=== PATIENT | male | born 1985 | race Caucasian/White ===

== ENCOUNTER → 2023-04-21 23:24 | Outpatient (CLI) | payer MEDICAID, SELFPAY ==
[2023-04-21 18:50] LABS: Basophils # 0.1 K/mm3 (0-0.2); Basophils % 1.1 % (0.1-2.0); Eosinophils # 0.4 K/mm3 (0.0-0.4); Eosinophils % 6.2 % (0.1-12.0); Hematocrit 46.3 % (42.0-52.0); Hemoglobin 14.8 g/dL (14.1-18.0); Lymphocytes # 2.2 K/mm3 (0.7-4.5); Lymphocytes % 33.9 % (10-50); Mean Corpuscular Hemoglobin 29.4 pg (27.0-31.2); Mean Corpuscular Volume 91.9 fl (80-94); Mean Platelet Volume 9.1 fl (7.4-10.4); Monocytes # 0.4 K/mm3 (0.1-1.0); Neutrophils # 3.5 K/mm3 (1.8-7.8); Neutrophils % 52.9 % (37.0-80.0); Platelet Count 249 K/mm3 (142-424); Red Blood Count 5.04 M/mm3 (4.60-6.20); Red Cell Distribution Width 14.2 % (11.5-17.5); White Blood Count 6.6 K/mm3 (4.8-10.8)
[2023-04-21 19:07] LABS: Alanine Aminotransferase 16 U/L (12-78); Albumin Level 4.3 g/dl (3.5-5.0); Albumin/Globulin Ratio 1.7 (1.1-1.8); Alkaline Phosphatase 65 U/L (38-126); Anion Gap 13.8 mEq/L (5-15); Aspartate Amino Transferase 30 U/L (17-59); Bilirubin,Total 0.2 mg/dl (0.2-1.3); Blood Urea Nitrogen 19 mg/dl (9-20); Calcium 9.1 mg/dl (8.4-10.2); Carbon Dioxide 30 mmol/L (22.0-30.0); Chloride 101 mmol/L (98-107); Chol/HDL Ratio 4.1 (1-3.5); Cholesterol 202 mg/dl (140-200); Estimated Glomerular Filt Rate 94 ml/min (>60); GFR (African American) 114 ML/MIN (>60); Globulin 2.5 g/dL (1.3-3.2); Glucose 94 mg/dl (74-100); HDL Cholesterol 49 mg/dl (40-60); Potassium 3.8 mmoL/L (3.5-5.1); Sodium 141 mmol/L (136-145); Total Protein,Serum 6.8 g/dl (6.3-8.2); Triglycerides 91 mg/dl (30-150); VLDL Cholesterol 18 mg/dL (0-40)
[2023-04-21 19:18] LABS: Direct LDL Cholesterol 119.23 mg/dL (100-129)
[2023-04-21 19:23] LABS: Free T4 (Free Thyroxine) 1.63 ng/dl (0.78-2.19)
[2023-04-21 19:26] LABS: 25-OH Vitamin D, Total 18.4 ng/mL (30-100)
[2023-04-21 19:39] LABS: Thyroid Stimulating Hormone 2.45 uIU/mL (0.465-4.68)
== END ==
PROVIDERS: PCP Emergency Medicine; Visit Provider Emergency Medicine
DX: E78.5 Hyperlipidemia, unspecified (principal); E55.9 Vitamin D deficiency, unspecified; Z79.899 Other long term (current) drug therapy
CPT/HCPCS: 80053; 80061; 82306; 84439; 84443; 85025

== ENCOUNTER → 2023-06-16 13:06 | Outpatient (CLI) | payer MEDICAID, SELFPAY ==
--- NOTE | 2023-06-16 13:12 | CA_ITS ---
APPROVED REPORT EXAM: Comprehensive 2D, Doppler, and color-flow Echocardiogram [employer]: Elle Delgado RT(R) Ht: 5 ft 6 in Wt: 119lbs BSA: 1.60 BP: 138/82 mmHg Indications: murmur, smoker, HTN, hyperlipidemia 2D Dimensions LVOT 1.77 cm (M/F) 1.5-2.5 M-Mode Dimensions RVDd 2.09 cm (0.9-2.6) LA Diam 2.39 cm (1.9-4.0) LVDd 4.13 cm (3.5-5.7) Ao Diam 2.76 cm (2.0-3.7) LVDs 2.79 cm (3.5-5.7) IVSd 0.64 cm (0.6-1.1) PWd 0.67 cm (0.6-1.1) EF (Teich) 61.20% FS 32.40% EDV (Teich) 75.50 mL TAPSE 2.55 (<1.7) ESV (Teich) 29.30 mL LV Diastology E Decel Time 170.00 (160-240 msec) E/A Ratio 1.9 MED E' 9.80 (< 7 cm/sec) E'/MED E' Ratio 8.71 (>14) LAT E' 13.20 (<10 cm/sec) E/LAT E' Ratio 6.47 (>14) Mitral Valve MV E Max Tay. 85.00 (40-130 cm/s) MV A Velocity 45.00 (40-130 cm/s) E/A Ratio 1.89 MV Decel. Time 170.00 (160-240 ms) MV PHT 50.00 ms Left Ventricle The left ventricle is normal size. The left ventricular systolic function is normal. The left ventricular ejection fraction is within the normal range. There is normal left ventricular wall thickness. There is normal LV segmental wall motion. The left ventricular diastolic function is normal. LVEF is 65%. Right Ventricle The right ventricle is normal size. The right ventricular systolic function is normal. Atria The left atrium size is normal. The right atrium size is normal. There is no Doppler evidence of interatrial shunt. Aortic Valve The aortic valve is trileaflet. The aortic valve opens well. There is no aortic valvular stenosis. No aortic regurgitation is present. Mitral Valve The mitral valve is normal in structure. No evidence of mitral valve stenosis. There is no mitral valve regurgitation noted. Tricuspid Valve Tricuspid valve leaflets are thin and pliable. Trace tricuspid regurgitation. There is insufficient TR jet to estimate RVSP. Pulmonic Valve The pulmonary valve is normal in structure. Mild pulmonic regurgitation. Great Vessels The aortic root is normal in size. The ascending aorta is normal in size. IVC is normal in size and collapses >50% with inspiration. Pericardium There is no pericardial effusion. Other Information Study Quality: Fair Conclusion Normal biventricular systolic function. No significant valvular disease. Electronically signed by : Vanessa Frankel, 06/16/2023 17:36:32
== END ==
PROVIDERS: PCP Emergency Medicine; Visit Provider Emergency Medicine
DX: R01.1 Cardiac murmur, unspecified (principal)
CPT/HCPCS: 93306

== ENCOUNTER → 2023-07-06 16:04 | Outpatient (CLI) | payer OTHER, SELFPAY ==
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
--- NOTE | 2023-07-06 16:05 | MR_ITS ---
PROCEDURE INFORMATION: Exam: MR Thoracic Spine Without Contrast Exam date and time: 07/06/2023 4:08 PM Age: 37 years old Clinical indication: Pain in thoracic spine; Additional info: Back pain TECHNIQUE: Imaging protocol: Magnetic resonance imaging of the thoracic spine without contrast. COMPARISON: No relevant prior studies available. FINDINGS: Bones/joints: There is preservation of vertebral alignment. There is preservation of vertebral body heights. No marrow replacing process. Spinal cord: Spinal cord is normal in signal characteristics. T1-T2: No significant disc bulge or herniation. No severe spinal canal stenosis. No significant neural foraminal narrowing. T2-T3: No significant disc bulge or herniation. No severe spinal canal stenosis. No significant neural foraminal narrowing. T3-T4: No significant disc bulge or herniation. No severe spinal canal stenosis. No significant neural foraminal narrowing. T4-T5: No significant disc bulge or herniation. No severe spinal canal stenosis. No significant neural foraminal narrowing. T5-T6: No significant disc bulge or herniation. No severe spinal canal stenosis. No significant neural foraminal narrowing. T6-T7: No significant disc bulge or herniation. No severe spinal canal stenosis. No significant neural foraminal narrowing. T7-T8: No significant disc bulge or herniation. No severe spinal canal stenosis. No significant neural foraminal narrowing. T8-T9: No significant disc bulge or herniation. No severe spinal canal stenosis. No significant neural foraminal narrowing. T9-T10: No significant disc bulge or herniation. No severe spinal canal stenosis. No significant neural foraminal narrowing. T10-T11: No significant disc bulge or herniation. No severe spinal canal stenosis. No significant neural foraminal narrowing. T11-T12: No significant disc bulge or herniation. No severe spinal canal stenosis. No significant neural foraminal narrowing. T12-L1: No significant disc bulge or herniation. No severe spinal canal stenosis. No significant neural foraminal narrowing. Soft tissues: Unremarkable. IMPRESSION: No evidence of significant spinal canal stenosis or neural foraminal narrowing at any level.
== END ==
LOC: RAD 16:05
PROVIDERS: PCP Emergency Medicine; Visit Provider Emergency Medicine
DX: M54.2 Cervicalgia (principal); M54.9 Dorsalgia, unspecified; M54.6 Pain in thoracic spine
CPT/HCPCS: 72141; 72146; 76376

== ENCOUNTER → 2023-10-16 09:29 | Outpatient (CLI) | payer MEDICAID, SELFPAY ==
[2023-10-16 20:02] LABS: Amphetamine/Metha Screen,Urine Negative ng/ml (<1000); Barbiturates Screen,Urine Negative ng/ml (<200)
[2023-10-16 20:03] LABS: Benzodiazepines Screen,Urine Negative ng/ml (<200)
[2023-10-16 20:04] LABS: Cannabinoid Screen,Urine Positive ng/ml (<50); Cocaine Screen,Urine Negative ng/ml (<300)
[2023-10-16 20:05] LABS: Phencyclidine Screen,Urine Negative ng/ml (<25)
[2023-10-16 20:06] LABS: Methadone Screen,Urine Negative ng/ml (<300); Opiate Screen,Urine Negative ng/ml (<300)
[2023-10-22 07:32] LABS: Alprazolam Negative (Cutoff=100); Benzodiazepines Positive ng/mL (Cutoff=100); Clonazepam Positive (.); Clonazepam Confirm 1987 ng/mL (Cutoff=100); Flurazepam Negative (Cutoff=100); Lorazepam Negative (Cutoff=100); Midazolam Negative (Cutoff=100); Temazepam Negative (Cutoff=100); Triazolam Negative (Cutoff=100)
== END ==
PROVIDERS: PCP Internal Medicine; Visit Provider Internal Medicine
DX: Z79.899 Other long term (current) drug therapy (principal)
CPT/HCPCS: 80305; 80346

== ENCOUNTER 2023-12-03 21:35 | Outpatient (CLI) | payer MEDICAID, SELFPAY ==
[2023-12-03 21:05] LABS: Amphetamine/Metha Screen,Urine Negative ng/ml (<1000)
[2023-12-03 21:06] LABS: Barbiturates Screen,Urine Negative ng/ml (<200)
[2023-12-03 21:07] LABS: Benzodiazepines Screen,Urine Negative ng/ml (<200); Cannabinoid Screen,Urine Positive ng/ml (<50)
[2023-12-03 21:08] LABS: Cocaine Screen,Urine Negative ng/ml (<300); Methadone Screen,Urine Negative ng/ml (<300)
[2023-12-03 21:10] LABS: Opiate Screen,Urine Negative ng/ml (<300)
[2023-12-03 21:11] LABS: Phencyclidine Screen,Urine Negative ng/ml (<25)
[2023-12-13 10:39] LABS: Alprazolam Negative (Cutoff=100); Benzodiazepines Positive ng/mL (Cutoff=100); Clonazepam Positive (.); Clonazepam Confirm 569 ng/mL (Cutoff=100); Flurazepam Negative (Cutoff=100); Lorazepam Negative (Cutoff=100); Midazolam Negative (Cutoff=100); Temazepam Negative (Cutoff=100); Triazolam Negative (Cutoff=100)
== END 2023-12-03 23:59 ==
PROVIDERS: PCP Family Medicine; Visit Provider Family Medicine
DX: Z79.899 Other long term (current) drug therapy (principal)
CPT/HCPCS: 80307; 80346